=== PATIENT | female | born 2000 | race Hispanic/Latino ===

== ENCOUNTER 2019-01-18 05:42 | Emergency (ER) | payer SELFPAY ==
[2019-01-18 06:24] LABS: Bilirubin Negative (Negative); Blood, Urine Moderate (Negative); Clarity CLOUDY (Clear); Glucose, Urine (Dipstick) Negative (Negative); Specific Gravity, Urine 1.015 (1.002-1.036); pH, Urine 5.5 (5.0-9.0)
[2019-01-18 06:27] LABS: Bacteria/HPF 4+ HPF (None Seen); Hyaline Casts/LPF 0-3 HYALINE CAST LPF (0-3 Hyaline); Pathc Cast-AUWi Flag 0.81 (0-2.49); RBC/HPF 21-50 HPF (0-3); Squamous Epithelial 0-3 HPF (0-3)
[2019-01-18 06:34] LABS: Pregnancy Test - Urine (BHCG) Negative (Negative); Pregu Control Background? CLEAR/WHITE (CLR/WHITE); Pregu Control Bar Appear? YES (CONTROL BAR); Specific Gravity 1.015 (1.002-1.036)
[2019-01-18 07:10] LABS: Yeast-AUWi Flag 65.9 (0-25.0)
[2019-01-18 07:12] LABS: Nitrite Unable to Interpret (Negative)
[2019-01-18 07:13] LABS: Protein, Urine (Dipstick) Unable to Interpret mg/dL (Neg-Trace); Urobilinogen UNABLE TO INTERPRET mg/dL (0.2-1.0)
[2019-01-18 07:14] LABS: Leukocyte Large (Negative)
[2019-01-18 07:15] LABS: Yeast-All Forms None Seen HPF (None Seen)
[2019-01-18] MEDS ORDERED: cefTRIAXone\\ROCEPHIN 250 MG VIAL ONE (07:18)
[2019-01-18] MEDS ORDERED: Lidocaine 1% PF 5 ML VIAL ONE (07:18)
[2019-01-19 20:09] LABS: Chlamydia by PCR Not Detected (NotDetected); GC by PCR Not Detected (NotDetected)
== END 2019-01-18 07:26 | disposition home or self-care (01) ==
LOC: ERS 05:42
DX: N73.9 Female pelvic inflammatory disease, unspecified (principal); N39.0 Urinary tract infection, site not specified; D64.9 Anemia, unspecified
CPT/HCPCS: 81003; 81015; 81025; 87077; 87086; 87186; 87480; 87491; 87510; 87591; 87660; 96372; J0696; J2001

== ENCOUNTER 2019-08-09 02:10 | Emergency (ER) | payer OTHER, SELFPAY ==
[2019-08-09] MEDS ORDERED: Ketorolac Tromethamine 60 MG/2 ML VIAL ONE (04:52)
== END 2019-08-09 06:42 | disposition home or self-care (01) ==
LOC: ERS 02:10
DX: O03.9 Complete or unspecified spontaneous abortion without complication (principal); D64.9 Anemia, unspecified; Z79.899 Other long term (current) drug therapy
CPT/HCPCS: 36415; 84702; 86900; 86901; 96372; 99284; J1885

== ENCOUNTER 2019-08-19 21:02 | Emergency (ER) | payer OTHER | END 2019-08-19 21:16 | disposition left against medical advice (07) | LOC: ERS 21:02 | DX: Z53.21 Procedure and treatment not carried out due to patient leaving prior to being seen by health care provider (principal) ==

== ENCOUNTER 2020-04-11 09:44 | Outpatient (CLI) | payer OTHER ==
--- NOTE | 2020-04-11 11:23 | ULT ---
ULTRASOUND OBSTETRICAL COMPLETE: DATE: 04/11/2020 HISTORY: 19-year-old female for anatomical survey FINDINGS: number: paige lie: Cephalic Maternal cervix: 4 cm. Closed. Placenta: Anterior. No placenta previa. Amniotic fluid volume: JOSE = 14.5 cm heart rate: 142 bpm The following anatomy is visualized, with no evidence of anomalies: Head, cerebellum, lateral ventricles, four-chamber heart, stomach, kidneys, cord insertion, bladder, cervical spine, thoracic spine, lumbar spine, sacrum, nose and lips, upper extremities, lower extremities, and three-vessel cord. biometry: Biparietal diameter (BPD): 5.2 cm 21 w 5 d Head circumference (HC): 19.5 cm 21 w 5 d Abdominal circumference (AC): 17.2 cm 22 w 2 d Femur length (FL): 3.6 cm 21 w 3 d Average ultrasound age (AUA): 21 w 6 d Estimated date of delivery (JEANNIE): 08/16/2020 Estimated weight (EFW): 449 g +/- 66 g IMPRESSION: 1) Live 2nd trimester intrauterine gestation. 2) Estimated gestational age of 21 weeks, 6 days 3) cephalic lie. 4) no anatomic abnormality identified.
== END 2020-04-11 09:45 | disposition home or self-care (01) ==
LOC: BICULT 09:44
PROVIDERS: ATTEND Family Medicine
DX: Z34.02 Encounter for supervision of normal first pregnancy, second trimester (principal); Z3A.21 21 weeks gestation of pregnancy
CPT/HCPCS: 76805

== ENCOUNTER 2020-08-10 23:55 | Day surgery (SDC) | payer BC, OTHER ==
[2020-08-11 00:26] VITALS: BMI 27.7
[2020-08-11] MEDS ORDERED: hydrALAZINE 20 MG/ML VIAL SLOW IVP PRN (00:38)
--- NOTE | 2020-08-11 01:07 | HP ---
TIME OF EVALUATION: Roughly 0015 hours. LOCATION: Labor and Delivery triage. CHIEF COMPLAINT: Possible contractions at 38 weeks and 5 days. The patient of Dr. Coleman. HISTORY OF PRESENT ILLNESS: This is a 20-year-old, G2, P0, with any EDC of 08/20, placing her at 38 weeks and 5 days with possible contractions since about 8:00 p.m. on the . She denies vaginal bleeding or leakage of fluid. She states that the contractions were irregular and they do not give her any limitation of function. She states that she will last checked in the office as she was 2 cm then. She denies vaginal bleeding or leakage of fluid. She has good movement. REVIEW OF SYSTEMS: GENERAL: She denies cough for fevers. RESPIRATORY: No shortness of breath. CARDIOVASCULAR: No chest pain. NEUROLOGIC: No complaints of headaches, visual changes, or loss of muscle strength. OB: She has good movement. PAST MEDICAL HISTORY: Negative. PAST SURGICAL HISTORY: Negative. OB HISTORY: She had a first-trimester miscarriage in the past. ALLERGIES: NONE. SOCIAL HISTORY: Negative for alcohol, tobacco, or drug use. MEDICATIONS: Include vitamins. PHYSICAL EXAMINATION: VITAL SIGNS: Blood pressure 117/56, pulse of 80, and temperature 98.4. GENERAL: She is in no acute distress. ABDOMEN: Soft and nontender and gravid and size consistent with dates. PELVIC: Reveals no active vaginal bleeding or leakage of fluid. Her cervix is 2 cm dilated, 50% effaced, -2 station, and posterior. There are no vulvovaginal lesions. : On external monitors, heart tones were reactive and within normal limits. There is moderate variability. There is uterine irritability, but no distinct contraction pattern. ASSESSMENT: This is a 20-year-old, G2, P0, at early term at 38 weeks and 5 days with latent labor, who was still 2 cm, which is the same as her last exam. There is no evidence of maternal or compromise. PLAN: 1. Reassurance given. 2. Latent phase of labor addressed. 3. As she has not changed from last exam and has a reactive nonstress test, we will discharge her and have her followup as scheduled. 4. No evidence of complication at this time. 5. The patient has been seen at bedside. Job ID: [id number] [facility]
== END 2020-08-11 01:20 | disposition home or self-care (01) ==
LOC: L&D/OP 23:55
PROVIDERS: ATTEND Family Medicine
DX: O47.1 False labor at or after 37 completed weeks of gestation (principal); O09.293 Supervision of pregnancy with other poor reproductive or obstetric history, third trimester; Z3A.38 38 weeks gestation of pregnancy

== ENCOUNTER 2020-08-18 07:41 | Outpatient (CLI) | payer BC, OTHER ==
[2020-08-18 17:13] LABS: SARS-CoV-2 MS2 Positive; SARS-CoV-2 N Gene Negative; SARS-CoV-2 S Gene Negative; SARS-CoV-2 by NAA Not Detected (NotDetected); SARS-CoV-2 orf1ab Negative
== END 2020-08-18 07:42 | disposition home or self-care (01) ==
LOC: LABBT 07:41
PROVIDERS: ATTEND Family Medicine
DX: Z01.812 Encounter for preprocedural laboratory examination (principal); Z20.828 Contact with and (suspected) exposure to other viral communicable diseases
CPT/HCPCS: 87635; U0003

== ENCOUNTER 2021-11-06 19:30 | Emergency (ER) | payer BC, OTHER ==
[2021-11-06] MEDS ORDERED: Ondansetron PF 4 MG/2 ML Vial ONE ×2 (19:55→21:31)
[2021-11-06 20:01] LABS: #Eosinphils 0.3 thou/uL (0.0-0.7); #Lymphocytes 1.4 thou/uL (1.20-3.40); #Monocytes 0.6 thou/uL (0.11-0.59); #Neutrophils 7.3 thou/uL (1.40-6.50); %Basophils 0.4 % (0.0-1.0); %Lymphocytes 14.9 % (21.0-51.0); %Neutrophils 75.7 % (42.0-75.0); Hemoglobin 14.7 g/dL (12.0-16.0); Mean Corpuscular HGB CONC 33.5 g/dL (32.0-36.0); Mean Corpuscular Hemoglobin 30.6 pg (27.0-31.0); Mean Corpuscular Volume 91.5 fL (78.0-98.0); Platelet Count 177 thou/uL (130-400); RBC Distribution Width 12.7 % (11.5-14.5); Red Blood Cell (RBC) Count 4.78 mill/uL (4.20-5.40); White Blood Cell (WBC) Count 9.6 thou/uL (4.8-10.8)
[2021-11-06 20:22] LABS: ALT (SGPT) 10 U/L (8-55); AST (SGOT) 14 U/L (5-34); Albumin 4.7 g/dL (3.5-5.0); Alkaline Phosphatase 82 U/L (40-110); Anion Gap 15 mmol/L (10-20); BUN (Urea Nitrogen) 11 mg/dL (7.0-18.7); Bilirubin, Total 0.4 mg/dL (0.2-1.2); Calc. Creatinine Clearance 0 mL/min (70-130); Calcium 9.2 mg/dL (7.8-10.44); Carbon Dioxide 20 mmol/L (22-29); Chloride 106 mmol/L (98-107); Globulin 3.2 g/dL (2.4-3.5); Glucose 144 mg/dL (70-105); Lipase 20 U/L (8-78); Potassium 3.6 mmol/L (3.5-5.1); Protein, Total 7.9 g/dL (6.0-8.3); Sodium 137 mmol/L (136-145)
[2021-11-06 21:28] LABS: Bilirubin Negative (Negative); Blood, Urine Negative (Negative); Glucose, Urine (Dipstick) Negative (Negative); Ketone, Urine > or equal to 80 mg/dL (Negative); Leukocyte Negative (Negative); Nitrite Negative (Negative); Protein, Urine (Dipstick) Negative (Neg-Trace); Urobilinogen 0.2 mg/dL (Less than 2); pH, Urine 5.5 (5.0-9.0)
[2021-11-06 21:31] LABS: Clarity Clear (Clear); Pregnancy Test - Urine (BHCG) Negative (Negative); Pregu Control Background? CLEAR/WHITE (CLR/WHITE); Pregu Control Bar Appear? YES (CONTROL BAR); Specific Gravity 1.024 (1.002-1.036); Specific Gravity, Urine 1.024 (1.002-1.036)
[2021-11-06] MEDS ORDERED: Dicyclomine 20 MG/2 ML VIAL ONE (22:44)
== END 2021-11-06 23:16 | disposition home or self-care (01) ==
LOC: ERS 19:30
DX: K52.9 Noninfective gastroenteritis and colitis, unspecified (principal)
CPT/HCPCS: 80053; 81003; 81025; 83690; 85025; 96372; 96374; 96376; J0500; J2405